=== PATIENT | male | born 2000 | race Caucasian/White ===

== ENCOUNTER 2023-07-28 07:59 | Emergency (ER) | payer OTHER ==
[2023-07-28] MEDS ORDERED: Lidocaine 1% 5 ML VIAL INJECT ONE (08:15)
[2023-07-28] MEDS ORDERED: Diphtheria,Pertussis(Acell),Tetanus Vaccine 0.5 ML Syringe IM ONE (09:00)
== END 2023-07-28 09:21 | disposition home or self-care (01) ==
LOC: MW.ED 07:59
DX: S61.512A Laceration without foreign body of left wrist, initial encounter (principal); Z23 Encounter for immunization; W26.8XXA Contact with other sharp object(s), not elsewhere classified, initial encounter; Y92.000 Kitchen of unspecified non-institutional (private) residence as the place of occurrence of the external cause
CPT/HCPCS: 90471; 90715; 99282-25; J3490

== ENCOUNTER 2023-08-07 10:07 | Emergency (ER) | payer SELFPAY | END 2023-08-07 10:20 | disposition left against medical advice (07) | LOC: MW.ED 10:07 | DX: Z48.02 Encounter for removal of sutures (principal) | CPT/HCPCS: 99281 ==